=== PATIENT | male | born 1950 | race Caucasian/White ===

== ENCOUNTER → 2024-10-19 08:00 | Outpatient (REF) | payer MEDICARE, OTHER, SELFPAY | LOC: RAD 08:00 | PROVIDERS: ATTENDING PHYSICIAN Internal Medicine Cardiovascular Disease; FAMILY PHYSICIAN Family Medicine | DX: Q25.72 Congenital pulmonary arteriovenous malformation (principal); R91.1 Solitary pulmonary nodule | CPT/HCPCS: 71275; Q9967 ==

== ENCOUNTER → 2025-05-29 11:03 | Outpatient (REF) | payer MEDICARE, OTHER, SELFPAY | LOC: RAD 11:03 | PROVIDERS: ATTENDING PHYSICIAN Family Medicine | DX: R91.1 Solitary pulmonary nodule (principal) | CPT/HCPCS: 71250 ==